=== PATIENT | male | born 1950 | race Caucasian/White ===

== ENCOUNTER 2021-08-12 21:55 | Observation (INO) ==
[2021-08-12] MEDS ORDERED: APRESOLINE INJ 20 MG VIAL IVP ONE (22:16)
[2021-08-12] MEDS ORDERED: TYLENOL 500 MG TAB EXTRA STRENGTH PO ONE ×2 (22:17→22:50)
--- NOTE | 2021-08-12 22:34 | DR.URIAD ---
HPI Time Seen Time Seen by Provider: 08/12/21 22:14 PCP Primary Care Physician: TAMEKA CASTAÑEDA Complaint Chief Complaint Doctors Comments: 70 y/o male presents with Covid, had a positive home test this am. Has been ill with cough, fever, chills and body aches since yesterday. His PCP called in doxycycline, medrol and benzonatate. Was told to come for Ab infusion. Cough is minimally productive. Denies chest pain to me. Has had nausea and vomiting x 2. No diarrhea. No previous covid vaccines. Is short of breath at times. Chief Complaint:: PT REPORTS A "RASPY" THROAT, COUGH, MILD FEVER, BODY ACHES, CHILLS. PT DENIES ANY CHEST DISCOMFORT. PT STATES THAT HE TOOK AN AT HOME COVID TEST THIS MORNING AND TESTED POSITIVE. Self Treatment fo Chief Complaint: PT HAS NOT SEEN HIS PCP D/T PCP CLOSED. PT PRESENTED TO ED. COVID-19 Coronavirus risk:travel/contact w/high risk person: Yes Has patient experienced Coronavirus symptoms: Yes Coronavirus symptoms experienced: Fever, Coughing and Shortness of Breath Reviewed Nurses Notes Reviewed: Yes Source History Provided: Patient Mode of Arrival Mode of Arrival: Ambulatory Timing Onset of Chief Complaint: 08/10/21 Quality Shortness of Breath: Mild PMH PMH Past Medical History: No Past Surgical History: Yes Surgical History: Ortho Surgery Past Surgical History Comment: EYE SURGERY X2, NECK SURGERY (METAL PLATES IN NECK) Family History History of Family Medical Conditions: Yes Family Medical History: Cancer Travel Risk Coronavirus risk:travel/contact w/high risk person: Yes Has patient experienced Coronavirus symptoms: Yes Coronavirus symptoms experienced: Fever, Coughing and Shortness of Breath Infectious screening Have you traveled outside the country in the last 6 months?: No Isolation: Airborn/Negative Pressure ROS Review of Systems Constitutional: Chills, Fever, Malaise and Weakness Eyes: No Symptoms Reported ENTM: Nose Congestion Respiratoy: Non-Productive Cough and Short of Breath Cardiovascular: No Symptoms Reported Gastrointestinal/Abdominal: Nausea and Vomiting; negative Abdominal Pain Genitourinary: No Symptoms Reported Neurological: Weakness Musculoskeletal: Muscle Pain Integumentary: No Symptoms Reported Hematologic/Lymphatic: No Symptoms Reported Endocrine: No Symptoms Reported Psychiatric: No Symptoms Reported All Other Systems: Reviewed and Negative PE Vital Signs Vitals: Temperature 100.5 F Pulse Rate 109 Respiratory Rate 22 Blood Pressure 175/107 O2 Sat by Pulse Oximetry 93 General Limitations: No Limitations General Appearance: Alert, In No Apparent Distress and Other (+ frequent dry cough) Eyes Eye exam: Normal Appearance, PERRL and EOMI ENT ENT Exam: Mucous Membranes Moist External Ear Exam: Normal External Inspection Nose Exam: Normal Nose Exam Throat Exam: Normal Inspection Neck Neck Exam: Normal Inspection and Full ROM; negative Tenderness Chest Chest Inspection: Normal Inspection Respiratory Respiratory Exam: negative Accessory Muscle Use and Respiratory Distress Respiratory Exam: Bilateral: Rhonchi Cardiovascular Cardiovascular Exam: Regular Rate, Normal Rhythm, Tachycardia and Normal Heart Sounds Abdominal Exam Abdominal Exam: Normal Inspection, Normal Bowel Sounds and Soft; negative Tenderness Extremeties Extremities Exam: Normal Inspection and Full ROM; negative Tenderness and Edema Back Back Exam: Normal Inspection Neurologic Neurological Exam: Alert, Oriented X3 and CN II-XII Intact; negative Motor Sensory Deficit Psychiatric Psychiatric Exam: Normal Affect Skin Skin Exam: Warm and Dry MDM Differential Diagnosis Differential Diagnosis: Pneumonia (Covid) COURSE Treatment Treatment: 70 y/o ill since yesterday, + covid today. Pulse ox 91%. W/u initiated. + marked elevated BP (has had HTN in past "when aggravated). Given IV hydralazine. Will give IV solu-medrol. CXR with pneumonia changes c/w Covid. Recommend admission for O2, further therapies. Discussed with covering hospitalist, Dr Mooney, and he accepts the admmission. [facility] Labs Reviewed Result Diagrams: 08/12/21 22:28 08/12/21 22:28 Laboratory: WBC 9.6 X10^3/uL (3.6-10.0) 08/12/21 22: RBC 5.45 X10^6/uL (4.7-6.0) 08/12/21 22:28 Hgb 17.1 g/dL (13.5-18.0) 08/12/21 22: Hct 49.1 % (42.0-54.0) 08/12/21 22: MCV 90.0 fL (80.0-100.0) 08/12/21 22: MCH 31.4 pg (27.0-34.0) 08/12/21 22: MCHC 34.9 g/dL (33.0-35.0) 08/12/21 22: RDW 13.6 % (11.6-16.5) 08/12/21: Plt Count 109 X10^3/uL (150.0-450.0) L 08/12/21 Plt Count Comment Adequate (ADEQUATE) 08/12/21 MPV 10.0 fL (7.4-11.0) 08/12/21: Neut % (Auto) 91.3 % (42.0-75.0) H 08/12/21: Lymph % (Auto) 4.7 % (21.0-51.0) L 08/12/21: [place] % (Auto) 2.9 % (0.0-13.0) 08/12/21: Eos % (Auto) 0.0 % (0.9-2.9) L 08/12/21 Baso % (Auto) 1.1 % (0.2-1.0) H 08/12/21 Neut # (Auto) 8.8 x10^3/uL (2.2-4.8) H 08/12/21: Lymph # (Auto) 0.4 X10^3/uL (1.3-2.9) L 08/12/21: [place] # (Auto) 0.3 x10^3/uL (0.3-0.8) 08/12/21: Eos # (Auto) 0.0 x10^3/uL (0.0-0.2) 08/12/21: Baso # (Auto) 0.1 X10^3/uL (0.0-0.1) 08/12/21: Absolute Nucleated RBC 0.0 /100WBC 08/12/21 Total Counted 100 08/12/21: Neutrophils % (Manual) 83 % (39-76) H 08/12/21 Band Neutrophils % 10 % (0-10) 08/12/21 Lymphocytes % (Manual) 4 % (13-43) L 08/12/21: Monocytes % (Manual) 3 % (4-9) L 08/12/21: Plt Morphology Comment Normal (NORMAL) 01/04/22 22:28 RBC Morphology Normal (NORMAL) 08/12/21 22:28 Sodium 134 mmol/L (136-145) L 08/12/21 22: Corrected Sodium 137 mmol/L (136-145) 08/12/21 22: Potassium 4.1 mmol/L (3.5-5.1) 08/12/21 22: Chloride 100 mmol/L (98-107) 08/12/21 22: Carbon Dioxide 23.1 mmol/L (21-32) 08/12/21 22: BUN 15 mg/dL (7-18) 08/12/21: Creatinine 1.11 mg/dL (0.70-1.30) 08/12/21:28 Est GFR (MDRD) Af Amer > 60 (>60) 08/12/21 22: Est GFR (MDRD) Non-Af > 60 (>60) 08/12/21 22: Glucose 216 mg/dL (65-99) H 08/12/21 22: Calcium 9.0 mg/dL (8.5-10.1) 08/12/21: Corrected Calcium TNP 08/12/21: Total Bilirubin 0.50 mg/dL (0.2-1.0) 08/12/21 22: AST 106 Units/L (15-37) H 08/12/21 22: ALT 168 Units/L (12-78) H 08/12/21 22: Alkaline Phosphatase 85 Units/L (46-116) 08/12/21: Creatine Kinase 239 Units/L (39-308) 08/12/21: CK-MB (CK-2) 1.5 ng/mL (0-4.0) 08/12/21 22: CK/CKMB % Calc 0.6 % (<4) 08/12/21: Troponin I < 0.02 ng/mL (0-1.5) 08/12/21: Total Protein 7.7 g/dL (6.4-8.2) 08/12/21 22: Albumin 3.8 g/dL (3.4-5.0) 08/12/21 22: Globulin 3.9 g/dL (2.5-4.5) 08/12/21 22:28 Albumin/Globulin Ratio 1.0 Ratio (1.1-2.1) L 08/12/21 22:28 Specimen Type Clean catch urine 08/13/21 00:01 Urine Color Yellow (YELLOW) 08/13/21 00:01 Urine Appearance Clear (CLEAR) 08/13/21 00:01 Urine pH 5.0 (5.0 - 8.0) 08/13/21 00:01 Ur Specific [place] 1.025 (1.000-1.030) 08/13/21 00:01 Urine Protein 2+ (NEGATIVE) 08/13/21 00:01 Urine Glucose (UA) 4+ (NEGATIVE) 08/13/21 00:01 Urine Ketones 3+ (NEGATIVE) 08/13/21 00:01 Urine Occult Blood 1+ (NEGATIVE) 08/13/21 00:01 Urine Nitrite Negative (NEGATIVE) 08/13/21 00:01 Urine Bilirubin Negative (NEGATIVE) 08/13/21 00:01 Urine Urobilinogen Normal (NORMAL) 08/13/21 00:01 Ur Leukocyte Esterase Negative (NEGATIVE) 08/13/21 00:01 Urine RBC None seen /HPF (0-3) 08/13/21 00:01 Urine WBC None seen /HPF (0-5) 08/13/21 00:01 Ur Squamous Epith Cells Rare /HPF (NEGATIVE) 08/13/21 00:01 Urine Bacteria Negative /HPF (NEGATIVE) 08/13/21 00:01 Ur Culture Indicated? No/not indicated 08/13/21 00:01 SARS-CoV-2 (PCR) Positive (NEGATIVE) A 08/12/21 22:23 Influenza Type A (PCR) Negative (NEGATIVE) 08/12/21 22:23 Influenza Type B (PCR) Negative (NEGATIVE) 08/12/21 22:23 RSV (PCR) Negative (NEGATIVE) 08/12/21 22:23 EKG Rate: 112 [place]: Normal Rhythm: ST Block: None ST: Nonsp Opioid Opioid Risk Tool Age (Saroj box if 16-45): No Total: 0 Total Score Risk Category: Low Risk Copyright: Santana CERVANTES predicting aberrant behaviors Diagnosis Discharge Problem: Pneumonia due to COVID-19 virus, Hypoxia Instructions Forms: Precautions for COVID19 [facility] Social Distancing
[2021-08-12 22:35] LABS: BASOPHILS # (AUTO) 0.1 X10^3/uL (0.0-0.1); BASOPHILS % (AUTO) 1.1 % (0.2-1.0); HEMATOCRIT 49.1 % (42.0-54.0); HEMOGLOBIN 17.1 g/dL (13.5-18.0); LYMPHOCYTES # (AUTO) 0.4 X10^3/uL (1.3-2.9); LYMPHOCYTES % (AUTO) 4.7 % (21.0-51.0); MEAN CORPUSCULAR HEMOGLOBIN 31.4 pg (27.0-34.0); MEAN CORPUSCULAR HGB CONC 34.9 g/dL (33.0-35.0); MONOCYTES # (AUTO) 0.3 x10^3/uL (0.3-0.8); MONOCYTES % (AUTO) 2.9 % (0.0-13.0); NEUTROPHILS # (AUTO) 8.8 x10^3/uL (2.2-4.8); NEUTROPHILS % (AUTO) 91.3 % (42.0-75.0); PLATELET COUNT 109 X10^3/uL (150.0-450.0); RED BLOOD COUNT 5.45 X10^6/uL (4.7-6.0); RED CELL DISTRIBUTION WIDTH 13.6 % (11.6-16.5); WHITE BLOOD COUNT 9.6 X10^3/uL (3.6-10.0)
[2021-08-12 22:50] LABS: BAND NEUTROPHILS % 10 % (0-10); PLATELET MORPHOLOGY COMMENT NORMAL (NORMAL)
[2021-08-12] MEDS ORDERED: APRESOLINE INJ 20 MG VIAL ONE (22:50)
[2021-08-12] MEDS ORDERED: SOLU-Medrol 125 MG VIAL IVP ONE (22:51)
--- NOTE | 2021-08-12 22:54 | RAD ---
HISTORYPT REPORTS A "RASPY" THROAT, COUGH, MILD FEVER, BODY ACHES, CHILLS. PT DENIES ANY CHEST DISCOMFORT. PT STATES THAT HE TOOK AN AT HOME COVID TEST THIS MORNING AND TESTED POSITIVE.STUDYCHEST, 1 VIEWCOMPARISONNone availableTECHNIQUEChest radiographic imaging, AP portable projection, 1 imageFINDINGSNo cardiomegaly.Hazy airspace disease at the right lung base and in the mid to lower left lung field.No pleural effusion.No pneumothorax.No acute osseous abnormality.IMPRESSIONHazy airspace disease at the right lung base and in the mid to lower left lung field. Finding could represent the sequela of a COVID-19 respiratory infection.Electronically signed by: Nguyễn Elliott (Aug 12, 2021 22:53:12)
[2021-08-12] MEDS ORDERED: SOLU-Medrol 125 MG VIAL ONE (23:09)
[2021-08-12 23:10] LABS: ALANINE AMINOTRANSFERASE 168 Units/L (12-78); ALBUMIN 3.8 g/dL (3.4-5.0); ALKALINE PHOSPHATASE 85 Units/L (46-116); ASPARTATE AMINO TRANSFERASE 106 Units/L (15-37); BLOOD UREA NITROGEN 15 mg/dL (7-18); CARBON DIOXIDE 23.1 mmol/L (21-32); CHLORIDE 100 mmol/L (98-107); CKMB % 0.6 % (<4); COR NA(FOR HYPERGLY) 137 mmol/L (136-145); CREATINE KINASE 239 Units/L (39-308); CREATINE KINASE MB 1.5 ng/mL (0-4.0); CREATININE 1.11 mg/dL (0.70-1.30); SODIUM 134 mmol/L (136-145); TOTAL PROTEIN 7.7 g/dL (6.4-8.2); eGFR NON BLACK RACES > 60 (>60)
[2021-08-13] MEDS ORDERED: NORCO 7.5/325 MG TAB PO ONE (00:31)
[2021-08-13 00:32] LABS: APPEARANCE,URINE CLEAR (CLEAR); BILIRUBIN,URINE NEGATIVE (NEGATIVE); BLOOD/HEMOGLOBIN,URINE 1+ (NEGATIVE); COLOR,URINE YELLOW (YELLOW); GLUCOSE, URINE 4+ (NEGATIVE); KETONES,URINE 3+ (NEGATIVE); LEUKOCYTE ESTERASE ,URINE NEGATIVE (NEGATIVE); NITRITES,URINE NEGATIVE (NEGATIVE); PROTEIN,URINE 2+ (NEGATIVE); UROBILINOGEN,URINE NORMAL (NORMAL)
[2021-08-13 00:33] LABS: BACTERIA,URINE NEGATIVE /HPF (NEGATIVE); RBC,URINE NONE SEEN /HPF (0-3); SQUAMOUS EPITHELIAL CELL,UR RARE /HPF (NEGATIVE)
[2021-08-13] MEDS ORDERED: REMDESIVIR 200 MG in NS 250 ML IV 250 ML IV ONE (00:37)
[2021-08-13] MEDS ORDERED: ZOFRAN INJ 4 MG VIAL IVP ONE (00:39)
[2021-08-13] MEDS ORDERED: REMDESIVIR IV ONE (01:48)
[2021-08-13] MEDS ORDERED: NORCO 7.5/325 MG TAB ONE (01:48)
[2021-08-13] MEDS ORDERED: ZOFRAN INJ 4 MG VIAL ONE (01:49)
[2021-08-13] MEDS ORDERED: NS 250 ML IV 250 ML IV ONE (01:49)
[2021-08-13] MEDS ORDERED: PERIACTIN TAB 4 MG PO PRN (03:36)
[2021-08-13] MEDS ORDERED: ZOFRAN INJ 4 MG VIAL IVP PRN (03:36)
[2021-08-13] MEDS ORDERED: PHARMACY CONSULT - LOVENOX XX SCH (03:36)
[2021-08-13] MEDS ORDERED: PHARMACY CONSULT - IVERMECTIN XX SCH (03:36)
[2021-08-13] MEDS ORDERED: SOLU-Medrol 125 MG VIAL IVP SCH (03:36)
[2021-08-13] MEDS ORDERED: NS 1,000 ML IV 1,000 ML ONE (03:50)
[2021-08-13] MEDS ORDERED: ASCORBIC ACID INJ MULTI-DOSE VIAL IV ONE ×3 (03:51→13:16)
[2021-08-13] MEDS ORDERED: NS 100 ML IV 100 ML ONE ×3 (03:52→13:15)
[2021-08-13] MEDS: NS 1,000 ML IV 1,000 ML IV SCH ×3 (04:16→21:55)
[2021-08-13] MEDS: ASCORBIC ACID INJ MULTI-DOSE VIAL 1,500 MG in NS 100 ML IV 100 ML IV SCH ×4 (04:16→21:25)
[2021-08-13] MEDS ORDERED: APRESOLINE INJ 20 MG VIAL IVP ONE (05:39)
[2021-08-13] MEDS ORDERED: APRESOLINE INJ 20 MG VIAL ONE (05:42)
[2021-08-13] MEDS ORDERED: TESSALON PERLES PO ONE ×2 (05:42→13:15)
[2021-08-13] MEDS: TESSALON PERLES PO SCH ×3 (05:53→21:50)
[2021-08-13] MEDS ORDERED: NovoLIN R (or HumuLIN R) SUBCUT PRN (05:54)
[2021-08-13] MEDS ORDERED: NovoLIN R (or HumuLIN R) ONE ×2 (06:10→20:15)
[2021-08-13 06:34] LABS: BASOPHILS % (AUTO) 0.3 % (0.2-1.0); HEMATOCRIT 48.5 % (42.0-54.0); HEMOGLOBIN 16.8 g/dL (13.5-18.0); LYMPHOCYTES # (AUTO) 0.5 X10^3/uL (1.3-2.9); LYMPHOCYTES % (AUTO) 5.1 % (21.0-51.0); MEAN CORPUSCULAR HEMOGLOBIN 31.5 pg (27.0-34.0); MEAN CORPUSCULAR HGB CONC 34.8 g/dL (33.0-35.0); MEAN CORPUSCULAR VOLUME 90.6 fL (80.0-100.0); MEAN PLATELET VOLUME 10.9 fL (7.4-11.0); MONOCYTES # (AUTO) 0.4 x10^3/uL (0.3-0.8); MONOCYTES % (AUTO) 3.8 % (0.0-13.0); NEUTROPHILS % (AUTO) 90.8 % (42.0-75.0); PLATELET COUNT 108 X10^3/uL (150.0-450.0); RED BLOOD COUNT 5.35 X10^6/uL (4.7-6.0); RED CELL DISTRIBUTION WIDTH 13.9 % (11.6-16.5); WHITE BLOOD COUNT 9.9 X10^3/uL (3.6-10.0)
[2021-08-13 07:04] LABS: ALANINE AMINOTRANSFERASE 143 Units/L (12-78); ALBUMIN 3.4 g/dL (3.4-5.0); ALKALINE PHOSPHATASE 77 Units/L (46-116); ASPARTATE AMINO TRANSFERASE 76 Units/L (15-37); BLOOD UREA NITROGEN 18 mg/dL (7-18); CALCIUM 8.5 mg/dL (8.5-10.1); CARBON DIOXIDE 23.5 mmol/L (21-32); CHLORIDE 101 mmol/L (98-107); COR NA(FOR HYPERGLY) 140 mmol/L (136-145); CREATININE 1.01 mg/dL (0.70-1.30); SODIUM 136 mmol/L (136-145); TOTAL PROTEIN 7.3 g/dL (6.4-8.2); eGFR NON BLACK RACES > 60 (>60)
--- NOTE | 2021-08-13 07:18 | RAD ---
HISTORYCOVID PNEUMONIASTUDYCHEST, 1 [id number]/04/2022.TECHNIQUEAP view of the chestFINDINGSThe cardiac silhouette is stably enlarged. Mediastinal contours appear stable. Low lung volumes with mild patchy bibasilar opacities. No definite pleural effusion or pneumothorax.IMPRESSIONStable patchy bibasilar opacities may represent pneumonia.Electronically signed by: Josef Foster (Aug 13, 2021 07:15:34)
[2021-08-13 07:31] LABS: BAND NEUTROPHILS % 11 % (0-10); PLATELET MORPHOLOGY COMMENT NORMAL (NORMAL)
[2021-08-13] MEDS ORDERED: BROVANA IN SCH (09:00)
[2021-08-13] MEDS ORDERED: VITAMIN A PO SCH (09:00)
[2021-08-13] MEDS ORDERED: ROCEPHIN VIAL 2 GRAMS 2 G in NS 100 ML IV + SPIKE MINIBAG* 100 ML IV SCH (09:00)
[2021-08-13] MEDS ORDERED: ROCEPHIN VIAL 2 GRAMS IM SCH (09:00)
[2021-08-13] MEDS ORDERED: LOVENOX INJ 100 MG SYR SC SCH (09:00)
[2021-08-13] MEDS ORDERED: IVERMECTIN PO SCH (09:00)
[2021-08-13] MEDS: BROVANA IN SCH ×2 (09:00→20:18)
[2021-08-13] MEDS ORDERED: VITAMIN D (1.25MG) PO SCH (09:00)
[2021-08-13] MEDS ORDERED: PULMICORT NEB TX 0.5 MG NEB SCH (09:00)
[2021-08-13] MEDS ORDERED: LIPITOR TAB 80 MG ONE (09:18)
[2021-08-13] MEDS ORDERED: CYTOTEC ONE ×2 (09:18→13:15)
[2021-08-13] MEDS ORDERED: THIAMINE HCL INJ ONE (09:18)
[2021-08-13] MEDS ORDERED: LOVENOX INJ 100 MG SYR SC ONE (09:18)
[2021-08-13] MEDS ORDERED: IVERMECTIN ONE (09:18)
[2021-08-13] MEDS ORDERED: ZINC SULFATE ONE (09:19)
[2021-08-13] MEDS ORDERED: PEPCID TAB 40 MG ONE (09:19)
[2021-08-13] MEDS ORDERED: VITAMIN D3 125 mcg (5,000 UNITS) ONE (09:19)
[2021-08-13] MEDS ORDERED: SOLU-Medrol 40 MG VIAL ONE (09:19)
[2021-08-13] MEDS ORDERED: PROTONIX INJ 40 MG VIAL ONE (09:19)
[2021-08-13] MEDS: ZINC SULFATE PO SCH ×2 (09:38→20:18)
[2021-08-13] MEDS: LIPITOR TAB 80 MG PO SCH (09:38)
[2021-08-13] MEDS: CYTOTEC PO SCH ×4 (09:39→20:18)
[2021-08-13] MEDS: PROTONIX INJ 40 MG VIAL IVP SCH ×2 (09:39→20:17)
[2021-08-13] MEDS: PEPCID TAB 40 MG PO SCH ×2 (09:39→20:17)
[2021-08-13] MEDS: THIAMINE HCL INJ IVP SCH ×2 (09:39→20:20)
[2021-08-13] MEDS: SOLU-Medrol 40 MG VIAL IVP SCH ×2 (09:40→17:49)
[2021-08-13] MEDS ORDERED: TOPROL XL PO ONE (17:41)
[2021-08-13] MEDS ORDERED: COZAAR PO SCH (18:00)
[2021-08-13] MEDS ORDERED: TOPROL XL PO SCH (18:00)
[2021-08-13] MEDS ORDERED: MELATONIN ONE (19:52)
[2021-08-13] MEDS ORDERED: SNACK - Diabetic Appropriate PO SCH (20:00)
[2021-08-13] MEDS: PULMICORT NEB TX 0.5 MG NEB SCH (20:18)
[2021-08-13] MEDS: NovoLIN R (or HumuLIN R) SUBCUT PRN (20:18)
[2021-08-13] MEDS: MELATONIN PO SCH (20:18)
[2021-08-14] MEDS: ASCORBIC ACID INJ MULTI-DOSE VIAL 1,500 MG in NS 100 ML IV 100 ML IV SCH ×4 (02:00→20:58)
[2021-08-14] MEDS: NS 1,000 ML IV 1,000 ML IV SCH ×2 (05:43→20:02)
[2021-08-14] MEDS: TESSALON PERLES PO SCH ×3 (05:44→21:01)
[2021-08-14] MEDS: NovoLIN R (or HumuLIN R) SUBCUT PRN ×3 (05:45→21:02)
[2021-08-14 05:46] LABS: BASOPHILS % (AUTO) 0.1 % (0.2-1.0); HEMATOCRIT 44.3 % (42.0-54.0); HEMOGLOBIN 15.1 g/dL (13.5-18.0); LYMPHOCYTES # (AUTO) 0.8 X10^3/uL (1.3-2.9); MEAN CORPUSCULAR HEMOGLOBIN 31.2 pg (27.0-34.0); MEAN CORPUSCULAR HGB CONC 34.1 g/dL (33.0-35.0); MEAN CORPUSCULAR VOLUME 91.4 fL (80.0-100.0); MEAN PLATELET VOLUME 11.2 fL (7.4-11.0); MONOCYTES # (AUTO) 0.9 x10^3/uL (0.3-0.8); MONOCYTES % (AUTO) 6.9 % (0.0-13.0); NEUTROPHILS # (AUTO) 11.5 x10^3/uL (2.2-4.8); PLATELET COUNT 120 X10^3/uL (150.0-450.0); RED BLOOD COUNT 4.85 X10^6/uL (4.7-6.0); RED CELL DISTRIBUTION WIDTH 13.9 % (11.6-16.5); WHITE BLOOD COUNT 13.2 X10^3/uL (3.6-10.0)
[2021-08-14 05:49] LABS: ALANINE AMINOTRANSFERASE 97 Units/L (12-78); ALKALINE PHOSPHATASE 65 Units/L (46-116); ASPARTATE AMINO TRANSFERASE 37 Units/L (15-37); BLOOD UREA NITROGEN 26 mg/dL (7-18); CALCIUM 8.3 mg/dL (8.5-10.1); CHLORIDE 106 mmol/L (98-107); COR CA(FOR HYPOALB) 9.1 mg/dL (8.5-10.1); COR NA(FOR HYPERGLY) 140 mmol/L (136-145); CREATININE 1.09 mg/dL (0.70-1.30); SODIUM 137 mmol/L (136-145); TOTAL PROTEIN 6.5 g/dL (6.4-8.2); eGFR NON BLACK RACES > 60 (>60)
[2021-08-14] MEDS: PULMICORT NEB TX 0.5 MG NEB SCH ×2 (08:43→20:51)
[2021-08-14] MEDS: BROVANA IN SCH ×2 (08:43→20:52)
[2021-08-14 09:13] VITALS: BMI 32.3
[2021-08-14] MEDS: LIPITOR TAB 80 MG PO SCH (09:49)
[2021-08-14] MEDS: CYTOTEC PO SCH ×4 (09:49→20:58)
[2021-08-14] MEDS: ACTOS PO SCH (09:49)
[2021-08-14] MEDS: THIAMINE HCL INJ IVP SCH ×2 (09:50→21:00)
[2021-08-14] MEDS: REMDESIVIR 100 MG in NS 100 ML IV + SPIKE MINIBAG* 120 ML IV SCH (09:50)
[2021-08-14] MEDS: ZINC SULFATE PO SCH ×3 (09:50→21:45)
[2021-08-14] MEDS: PEPCID TAB 40 MG PO SCH ×2 (09:50→20:59)
[2021-08-14] MEDS: PROTONIX INJ 40 MG VIAL IVP SCH ×2 (09:50→20:59)
[2021-08-14] MEDS: GLUCOPHAGE XR 24-HR PO SCH ×2 (10:30→20:57)
[2021-08-14] MEDS: IVERMECTIN PO SCH (11:18)
[2021-08-14] MEDS: LOVENOX INJ 100 MG SYR SC SCH ×2 (12:25→20:59)
[2021-08-14] MEDS: SOLU-Medrol 40 MG VIAL IVP SCH ×2 (14:02→21:00)
[2021-08-14] MEDS: SNACK - Diabetic Appropriate PO SCH (20:57)
[2021-08-14] MEDS: MELATONIN PO SCH (20:59)
[2021-08-15] MEDS: ASCORBIC ACID INJ MULTI-DOSE VIAL 1,500 MG in NS 100 ML IV 100 ML IV SCH ×3 (03:37→14:12)
[2021-08-15] MEDS: NS 1,000 ML IV 1,000 ML IV SCH ×3 (03:38→20:59)
[2021-08-15 05:26] LABS: BASOPHILS % (AUTO) 0.1 % (0.2-1.0); HEMATOCRIT 43.1 % (42.0-54.0); HEMOGLOBIN 14.6 g/dL (13.5-18.0); LYMPHOCYTES # (AUTO) 0.7 X10^3/uL (1.3-2.9); MEAN CORPUSCULAR HEMOGLOBIN 31.3 pg (27.0-34.0); MEAN CORPUSCULAR HGB CONC 33.9 g/dL (33.0-35.0); MEAN CORPUSCULAR VOLUME 92.1 fL (80.0-100.0); MEAN PLATELET VOLUME 11.3 fL (7.4-11.0); MONOCYTES # (AUTO) 0.4 x10^3/uL (0.3-0.8); MONOCYTES % (AUTO) 3.2 % (0.0-13.0); NEUTROPHILS % (AUTO) 90.7 % (42.0-75.0); PLATELET COUNT 102 X10^3/uL (150.0-450.0); RED BLOOD COUNT 4.68 X10^6/uL (4.7-6.0); RED CELL DISTRIBUTION WIDTH 14.2 % (11.6-16.5)
[2021-08-15 05:36] LABS: ALANINE AMINOTRANSFERASE 75 Units/L (12-78); ALBUMIN 2.9 g/dL (3.4-5.0); ALKALINE PHOSPHATASE 59 Units/L (46-116); ASPARTATE AMINO TRANSFERASE 30 Units/L (15-37); BLOOD UREA NITROGEN 28 mg/dL (7-18); CALCIUM 7.7 mg/dL (8.5-10.1); CARBON DIOXIDE 26.6 mmol/L (21-32); CHLORIDE 106 mmol/L (98-107); COR CA(FOR HYPOALB) 8.6 mg/dL (8.5-10.1); COR NA(FOR HYPERGLY) 142 mmol/L (136-145); CREATININE 1.05 mg/dL (0.70-1.30); SODIUM 139 mmol/L (136-145); TOTAL PROTEIN 6.2 g/dL (6.4-8.2); eGFR NON BLACK RACES > 60 (>60)
[2021-08-15] MEDS: TESSALON PERLES PO SCH ×3 (05:59→21:04)
[2021-08-15] MEDS: SOLU-Medrol 40 MG VIAL IVP SCH ×4 (05:59→21:02)
[2021-08-15 06:00] LABS: BAND NEUTROPHILS % 4 % (0-10)
[2021-08-15 06:01] LABS: PLATELET MORPHOLOGY COMMENT NORMAL (NORMAL)
[2021-08-15] MEDS: NovoLIN R (or HumuLIN R) SUBCUT PRN ×4 (06:25→21:05)
[2021-08-15] MEDS: BROVANA IN SCH ×2 (08:45→20:25)
[2021-08-15] MEDS: PULMICORT NEB TX 0.5 MG NEB SCH ×2 (08:45→20:25)
[2021-08-15] MEDS: ACTOS PO SCH (09:25)
[2021-08-15] MEDS: CYTOTEC PO SCH ×4 (09:27→21:01)
[2021-08-15] MEDS: IVERMECTIN PO SCH (09:28)
[2021-08-15] MEDS: LOVENOX INJ 100 MG SYR SC SCH ×2 (09:28→21:03)
[2021-08-15] MEDS: GLUCOPHAGE XR 24-HR PO SCH ×2 (09:28→20:59)
[2021-08-15] MEDS: LIPITOR TAB 80 MG PO SCH (09:28)
[2021-08-15] MEDS: REMDESIVIR 100 MG in NS 100 ML IV + SPIKE MINIBAG* 120 ML IV SCH (09:29)
[2021-08-15] MEDS: PEPCID TAB 40 MG PO SCH ×2 (09:29→21:01)
[2021-08-15] MEDS: PROTONIX INJ 40 MG VIAL IVP SCH ×2 (09:29→21:02)
[2021-08-15] MEDS: VITAMIN D3 125 mcg (5,000 UNITS) PO SCH (09:30)
[2021-08-15] MEDS: VITAMIN A PO SCH (09:30)
[2021-08-15] MEDS: THIAMINE HCL INJ IVP SCH ×2 (09:30→21:03)
[2021-08-15] MEDS: ZINC SULFATE PO SCH ×2 (09:30→21:03)
[2021-08-15] MEDS: SNACK - Diabetic Appropriate PO SCH (20:59)
[2021-08-15] MEDS: MELATONIN PO SCH (21:00)
[2021-08-15] MEDS: ASCORBIC ACID INJ MULTI-DOSE VIAL 1,500 MG in NS 50 ML IV 50 ML IV SCH (21:00)
[2021-08-16] MEDS: SOLU-Medrol 40 MG VIAL IVP SCH ×2 (03:29→11:22)
[2021-08-16] MEDS: ASCORBIC ACID INJ MULTI-DOSE VIAL 1,500 MG in NS 50 ML IV 50 ML IV SCH ×4 (03:29→21:35)
[2021-08-16 05:29] LABS: BASOPHILS % (AUTO) 0.2 % (0.2-1.0); HEMATOCRIT 44.2 % (42.0-54.0); HEMOGLOBIN 15.2 g/dL (13.5-18.0); LYMPHOCYTES # (AUTO) 0.7 X10^3/uL (1.3-2.9); LYMPHOCYTES % (AUTO) 6.7 % (21.0-51.0); MEAN CORPUSCULAR HEMOGLOBIN 31.4 pg (27.0-34.0); MEAN CORPUSCULAR HGB CONC 34.3 g/dL (33.0-35.0); MEAN CORPUSCULAR VOLUME 91.5 fL (80.0-100.0); MONOCYTES # (AUTO) 0.4 x10^3/uL (0.3-0.8); MONOCYTES % (AUTO) 4.4 % (0.0-13.0); NEUTROPHILS # (AUTO) 8.9 x10^3/uL (2.2-4.8); NEUTROPHILS % (AUTO) 88.7 % (42.0-75.0); PLATELET COUNT 95 X10^3/uL (150.0-450.0); RED BLOOD COUNT 4.83 X10^6/uL (4.7-6.0); RED CELL DISTRIBUTION WIDTH 13.8 % (11.6-16.5)
[2021-08-16 05:52] LABS: ALANINE AMINOTRANSFERASE 62 Units/L (12-78); ALBUMIN 2.9 g/dL (3.4-5.0); ALKALINE PHOSPHATASE 59 Units/L (46-116); ASPARTATE AMINO TRANSFERASE 25 Units/L (15-37); BLOOD UREA NITROGEN 30 mg/dL (7-18); CALCIUM 8.1 mg/dL (8.5-10.1); CARBON DIOXIDE 27.8 mmol/L (21-32); CHLORIDE 107 mmol/L (98-107); COR NA(FOR HYPERGLY) 145 mmol/L (136-145); CREATININE 0.96 mg/dL (0.70-1.30); SODIUM 143 mmol/L (136-145); TOTAL PROTEIN 6.2 g/dL (6.4-8.2); eGFR NON BLACK RACES > 60 (>60)
[2021-08-16] MEDS: NovoLIN R (or HumuLIN R) SUBCUT PRN ×2 (06:08→12:15)
[2021-08-16] MEDS: NS 1,000 ML IV 1,000 ML IV SCH ×2 (06:08→11:20)
[2021-08-16] MEDS: TESSALON PERLES PO SCH ×3 (06:08→21:39)
[2021-08-16] MEDS: PULMICORT NEB TX 0.5 MG NEB SCH ×2 (09:10→20:53)
[2021-08-16] MEDS: BROVANA IN SCH ×2 (09:10→20:53)
[2021-08-16] MEDS: ACTOS PO SCH (09:11)
[2021-08-16] MEDS: GLUCOPHAGE XR 24-HR PO SCH ×2 (09:12→21:35)
[2021-08-16] MEDS: CYTOTEC PO SCH ×4 (09:12→21:35)
[2021-08-16] MEDS: IVERMECTIN PO SCH (09:13)
[2021-08-16] MEDS: PEPCID TAB 40 MG PO SCH ×2 (09:16→21:37)
[2021-08-16] MEDS: LIPITOR TAB 80 MG PO SCH (09:16)
[2021-08-16] MEDS: PROTONIX INJ 40 MG VIAL IVP SCH ×2 (09:19→21:38)
[2021-08-16] MEDS: THIAMINE HCL INJ IVP SCH ×2 (09:19→21:38)
[2021-08-16] MEDS: VITAMIN A PO SCH (09:19)
[2021-08-16] MEDS: ZINC SULFATE PO SCH ×2 (09:20→21:38)
[2021-08-16] MEDS: VITAMIN D3 125 mcg (5,000 UNITS) PO SCH (09:20)
[2021-08-16] MEDS: ELIQUIS PO SCH ×2 (10:20→21:35)
[2021-08-16] MEDS: DECADRON TAB PO SCH (10:21)
[2021-08-16] MEDS: REMDESIVIR 100 MG in NS 100 ML IV + SPIKE MINIBAG* 120 ML IV SCH (10:22)
[2021-08-16] MEDS: LOVENOX INJ 100 MG SYR SC SCH (11:23)
[2021-08-16] MEDS: SNACK - Diabetic Appropriate PO SCH (20:00)
[2021-08-16] MEDS ORDERED: COLACE CAP 100 MG PO PRN (20:39)
[2021-08-16] MEDS: MELATONIN PO SCH (21:35)
[2021-08-17] MEDS: NS 1,000 ML IV 1,000 ML IV SCH (03:28)
[2021-08-17] MEDS: ASCORBIC ACID INJ MULTI-DOSE VIAL 1,500 MG in NS 50 ML IV 50 ML IV SCH ×2 (04:00→09:28)
[2021-08-17 05:16] LABS: BASOPHILS % (AUTO) 0.1 % (0.2-1.0); HEMATOCRIT 42.3 % (42.0-54.0); HEMOGLOBIN 14.3 g/dL (13.5-18.0); LYMPHOCYTES # (AUTO) 0.5 X10^3/uL (1.3-2.9); LYMPHOCYTES % (AUTO) 6.1 % (21.0-51.0); MEAN CORPUSCULAR HGB CONC 33.9 g/dL (33.0-35.0); MEAN CORPUSCULAR VOLUME 91.5 fL (80.0-100.0); MEAN PLATELET VOLUME 11.1 fL (7.4-11.0); MONOCYTES # (AUTO) 0.5 x10^3/uL (0.3-0.8); MONOCYTES % (AUTO) 6.6 % (0.0-13.0); NEUTROPHILS # (AUTO) 6.7 x10^3/uL (2.2-4.8); NEUTROPHILS % (AUTO) 87.2 % (42.0-75.0); PLATELET COUNT 80 X10^3/uL (150.0-450.0); RED BLOOD COUNT 4.63 X10^6/uL (4.7-6.0); RED CELL DISTRIBUTION WIDTH 13.8 % (11.6-16.5); WHITE BLOOD COUNT 7.7 X10^3/uL (3.6-10.0)
[2021-08-17 06:28] LABS: ALANINE AMINOTRANSFERASE 49 Units/L (12-78); ALBUMIN 2.6 g/dL (3.4-5.0); ALKALINE PHOSPHATASE 51 Units/L (46-116); ASPARTATE AMINO TRANSFERASE 20 Units/L (15-37); BLOOD UREA NITROGEN 31 mg/dL (7-18); CALCIUM 7.8 mg/dL (8.5-10.1); CARBON DIOXIDE 26.5 mmol/L (21-32); CHLORIDE 108 mmol/L (98-107); COR CA(FOR HYPOALB) 8.9 mg/dL (8.5-10.1); COR NA(FOR HYPERGLY) 145 mmol/L (136-145); CREATININE 1.02 mg/dL (0.70-1.30); SODIUM 142 mmol/L (136-145); TOTAL PROTEIN 5.5 g/dL (6.4-8.2); eGFR NON BLACK RACES > 60 (>60)
[2021-08-17] MEDS: TESSALON PERLES PO SCH (06:33)
[2021-08-17] MEDS: NovoLIN R (or HumuLIN R) SUBCUT PRN (06:45)
[2021-08-17] MEDS: DECADRON TAB PO SCH (09:28)
[2021-08-17] MEDS: GLUCOPHAGE XR 24-HR PO SCH (09:28)
[2021-08-17] MEDS: CYTOTEC PO SCH (09:28)
[2021-08-17] MEDS: ELIQUIS PO SCH (09:28)
[2021-08-17] MEDS: ACTOS PO SCH (09:28)
[2021-08-17] MEDS: IVERMECTIN PO SCH (09:29)
[2021-08-17] MEDS: PEPCID TAB 40 MG PO SCH (09:29)
[2021-08-17] MEDS: VITAMIN A PO SCH (09:29)
[2021-08-17] MEDS: THIAMINE HCL INJ IVP SCH (09:29)
[2021-08-17] MEDS: PROTONIX INJ 40 MG VIAL IVP SCH (09:29)
[2021-08-17] MEDS: LIPITOR TAB 80 MG PO SCH (09:29)
[2021-08-17] MEDS: VITAMIN D3 125 mcg (5,000 UNITS) PO SCH (09:29)
[2021-08-17] MEDS: ZINC SULFATE PO SCH (09:30)
[2021-08-17] MEDS: BROVANA IN SCH (09:34)
[2021-08-17] MEDS: PULMICORT NEB TX 0.5 MG NEB SCH (09:34)
[2021-08-17 12:26] VITALS: BP 164/82
[2021-08-17] MEDS ORDERED: GLUCOPHAGE PO SCH (17:00)
== END 2021-08-17 13:42 | disposition home or self-care (01) ==
LOC: U 21:57 → ER 21:57 → U 08-13 02:23 → ICU 08-13 13:50
PROVIDERS: ADMIT Obstetrics & Gynecology Obstetrics; ATTEND Obstetrics & Gynecology Obstetrics
DX: R94.5 Abnormal results of liver function studies; E11.65 Type 2 diabetes mellitus with hyperglycemia; I10 Essential (primary) hypertension; J12.82 Pneumonia due to coronavirus disease 2019; R79.82 Elevated C-reactive protein (CRP); U07.1 COVID-19; R06.02 Shortness of breath

== ENCOUNTER 2021-09-09 16:29 | Inpatient (IN) ==
[2021-09-09] MEDS ORDERED: VANCOMYCIN IV *PREMIX 1 G/200 ML BAG 1 G/200 ML PIGGYBACK IV ONE (17:39)
[2021-09-09] MEDS: LR 1,000 ML IV 1,000 ML IV SCH (17:54)
[2021-09-09] MEDS ORDERED: PHARMACY CONSULT - VANCOMYCIN XX SCH (18:00)
[2021-09-09 18:23] LABS: BASOPHILS % (AUTO) 0.8 % (0.2-1.0); EOSINOPHILS # (AUTO) 0.4 x10^3/uL (0.0-0.2); EOSINOPHILS % (AUTO) 6.9 % (0.9-2.9); HEMATOCRIT 37.7 % (42.0-54.0); LYMPHOCYTES # (AUTO) 0.5 X10^3/uL (1.3-2.9); LYMPHOCYTES % (AUTO) 8.8 % (21.0-51.0); MEAN CORPUSCULAR HEMOGLOBIN 31.3 pg (27.0-34.0); MEAN CORPUSCULAR HGB CONC 34.5 g/dL (33.0-35.0); MEAN CORPUSCULAR VOLUME 90.7 fL (80.0-100.0); MEAN PLATELET VOLUME 8.8 fL (7.4-11.0); MONOCYTES # (AUTO) 0.5 x10^3/uL (0.3-0.8); MONOCYTES % (AUTO) 8.1 % (0.0-13.0); NEUTROPHILS # (AUTO) 4.4 x10^3/uL (2.2-4.8); NEUTROPHILS % (AUTO) 75.4 % (42.0-75.0); RED BLOOD COUNT 4.16 X10^6/uL (4.7-6.0); RED CELL DISTRIBUTION WIDTH 13.6 % (11.6-16.5); WHITE BLOOD COUNT 5.9 X10^3/uL (3.6-10.0)
[2021-09-09 18:35] LABS: ALANINE AMINOTRANSFERASE 39 Units/L (12-78); ALBUMIN 2.3 g/dL (3.4-5.0); ALKALINE PHOSPHATASE 62 Units/L (46-116); ASPARTATE AMINO TRANSFERASE 24 Units/L (15-37); BLOOD UREA NITROGEN 17 mg/dL (7-18); CALCIUM 8.4 mg/dL (8.5-10.1); CARBON DIOXIDE 29.9 mmol/L (21-32); CHLORIDE 101 mmol/L (98-107); COR CA(FOR HYPOALB) 9.8 mg/dL (8.5-10.1); COR NA(FOR HYPERGLY) 138 mmol/L (136-145); CREATININE 0.94 mg/dL (0.70-1.30); SODIUM 138 mmol/L (136-145); TOTAL PROTEIN 6.9 g/dL (6.4-8.2); eGFR NON BLACK RACES > 60 (>60)
[2021-09-09 21:06] LABS: APPEARANCE,URINE CLEAR (CLEAR); BILIRUBIN,URINE NEGATIVE (NEGATIVE); BLOOD/HEMOGLOBIN,URINE NEGATIVE (NEGATIVE); COLOR,URINE YELLOW (YELLOW); GLUCOSE, URINE NEGATIVE (NEGATIVE); KETONES,URINE 1+ (NEGATIVE); LEUKOCYTE ESTERASE ,URINE NEGATIVE (NEGATIVE); NITRITES,URINE NEGATIVE (NEGATIVE); PROTEIN,URINE 2+ (NEGATIVE); UROBILINOGEN,URINE NORMAL (NORMAL)
[2021-09-09 21:07] LABS: BACTERIA,URINE NEGATIVE /HPF (NEGATIVE); RBC,URINE 0-2 /HPF (0-3); SQUAMOUS EPITHELIAL CELL,UR RARE /HPF (NEGATIVE)
[2021-09-09] MEDS: SNACK - Diabetic Appropriate PO SCH (21:20)
[2021-09-09] MEDS: FLOMAX PO SCH (21:20)
[2021-09-09] MEDS: ZOSYN VIAL 3.375 GRAMS 3.375 G in NS 100 ML IV + SPIKE MINIBAG* 100 ML IV SCH (21:21)
[2021-09-10] MEDS: ZOSYN VIAL 3.375 GRAMS 3.375 G in NS 100 ML IV + SPIKE MINIBAG* 100 ML IV SCH ×3 (05:04→22:08)
--- NOTE | 2021-09-10 06:07 | RAD ---
HISTORYSOB, HYPOXIASTUDYCHEST, PA/LAT [id number]/05/2022.TECHNIQUEAP view of the chestFINDINGSThe cardiac silhouette is stably enlarged. Mediastinal contours appear stable. There are diffuse bilateral airspace and interstitial opacities worse than prior study. Cannot exclude small pleural effusions. No pneumothorax. Soft tissue attenuation limits evaluation.IMPRESSIONWorsening of now diffuse bilateral airspace and interstitial opacities may represent pulmonary edema or pneumonia. Cannot exclude small pleural effusions.Electronically signed by: Josef Foster (Sep 10, 2021 06:06:25)
[2021-09-10 06:25] LABS: BASOPHILS % (AUTO) 0.6 % (0.2-1.0); EOSINOPHILS # (AUTO) 0.7 x10^3/uL (0.0-0.2); EOSINOPHILS % (AUTO) 14.3 % (0.9-2.9); HEMATOCRIT 35.1 % (42.0-54.0); HEMOGLOBIN 12.1 g/dL (13.5-18.0); LYMPHOCYTES # (AUTO) 0.7 X10^3/uL (1.3-2.9); LYMPHOCYTES % (AUTO) 13.6 % (21.0-51.0); MEAN CORPUSCULAR HEMOGLOBIN 31.3 pg (27.0-34.0); MEAN CORPUSCULAR HGB CONC 34.3 g/dL (33.0-35.0); MEAN CORPUSCULAR VOLUME 91.1 fL (80.0-100.0); MEAN PLATELET VOLUME 8.7 fL (7.4-11.0); MONOCYTES # (AUTO) 0.5 x10^3/uL (0.3-0.8); MONOCYTES % (AUTO) 10.3 % (0.0-13.0); NEUTROPHILS # (AUTO) 2.9 x10^3/uL (2.2-4.8); NEUTROPHILS % (AUTO) 61.2 % (42.0-75.0); RED BLOOD COUNT 3.85 X10^6/uL (4.7-6.0); RED CELL DISTRIBUTION WIDTH 13.8 % (11.6-16.5); WHITE BLOOD COUNT 4.8 X10^3/uL (3.6-10.0)
[2021-09-10 06:34] LABS: ALANINE AMINOTRANSFERASE 33 Units/L (12-78); ALKALINE PHOSPHATASE 55 Units/L (46-116); ASPARTATE AMINO TRANSFERASE 21 Units/L (15-37); BLOOD UREA NITROGEN 16 mg/dL (7-18); CARBON DIOXIDE 30.3 mmol/L (21-32); CHLORIDE 103 mmol/L (98-107); COR CA(FOR HYPOALB) 9.6 mg/dL (8.5-10.1); COR NA(FOR HYPERGLY) 140 mmol/L (136-145); CREATININE 1.05 mg/dL (0.70-1.30); SODIUM 139 mmol/L (136-145); eGFR NON BLACK RACES > 60 (>60)
[2021-09-10] MEDS ORDERED: LASIX IVP ONE (08:34)
[2021-09-10] MEDS ORDERED: ZEBETA TAB 5 MG PO SCH (09:00)
[2021-09-10] MEDS ORDERED: ALBUMIN HUMAN 25%- 100 ML 100 ML IV SCH (09:00)
[2021-09-10] MEDS: PROTONIX TAB 40 MG PO SCH (09:30)
[2021-09-10] MEDS: LOVENOX INJ 40 MG SYR SC SCH (09:31)
[2021-09-10] MEDS: COZAAR PO SCH (09:38)
[2021-09-10] MEDS: ZEBETA TAB 5 MG PO SCH (09:39)
[2021-09-10] MEDS: VANCOMYCIN IV *PREMIX 1.5 G/300 ML BAG 1.5 G/300 ML PIGGYBACK IV SCH ×2 (10:59→20:41)
[2021-09-10] MEDS: XOPENEX 1.25 MG/3 ML NEBULE NEB SCH ×3 (12:39→23:25)
[2021-09-10] MEDS: SNACK - Diabetic Appropriate PO SCH (20:41)
[2021-09-10] MEDS: FLOMAX PO SCH (20:41)
[2021-09-10] MEDS: LR 1,000 ML IV 1,000 ML IV SCH (22:08)
[2021-09-11 01:28] LABS: CKMB % 2.6 % (<4); CREATINE KINASE 38 Units/L (39-308); CREATINE KINASE MB < 1.0 ng/mL (0-4.0)
[2021-09-11] MEDS: XOPENEX 1.25 MG/3 ML NEBULE NEB SCH ×3 (04:00→16:36)
[2021-09-11] MEDS: ZOSYN VIAL 3.375 GRAMS 3.375 G in NS 100 ML IV + SPIKE MINIBAG* 100 ML IV SCH ×3 (05:21→23:33)
[2021-09-11 09:29] LABS: BASOPHILS % (AUTO) 1.1 % (0.2-1.0); EOSINOPHILS # (AUTO) 0.4 x10^3/uL (0.0-0.2); EOSINOPHILS % (AUTO) 9.1 % (0.9-2.9); HEMATOCRIT 34.2 % (42.0-54.0); HEMOGLOBIN 11.8 g/dL (13.5-18.0); LYMPHOCYTES # (AUTO) 0.5 X10^3/uL (1.3-2.9); LYMPHOCYTES % (AUTO) 11.4 % (21.0-51.0); MEAN CORPUSCULAR HEMOGLOBIN 31.2 pg (27.0-34.0); MEAN CORPUSCULAR HGB CONC 34.6 g/dL (33.0-35.0); MEAN CORPUSCULAR VOLUME 90.2 fL (80.0-100.0); MEAN PLATELET VOLUME 8.5 fL (7.4-11.0); MONOCYTES # (AUTO) 0.4 x10^3/uL (0.3-0.8); MONOCYTES % (AUTO) 9.3 % (0.0-13.0); NEUTROPHILS # (AUTO) 3.3 x10^3/uL (2.2-4.8); NEUTROPHILS % (AUTO) 69.1 % (42.0-75.0); RED BLOOD COUNT 3.79 X10^6/uL (4.7-6.0); RED CELL DISTRIBUTION WIDTH 13.6 % (11.6-16.5); WHITE BLOOD COUNT 4.7 X10^3/uL (3.6-10.0)
[2021-09-11 09:39] LABS: BLOOD UREA NITROGEN 13 mg/dL (7-18); CALCIUM 8.4 mg/dL (8.5-10.1); CARBON DIOXIDE 29.5 mmol/L (21-32); CHLORIDE 101 mmol/L (98-107); COR NA(FOR HYPERGLY) 138 mmol/L (136-145); CREATININE 1.04 mg/dL (0.70-1.30); SODIUM 137 mmol/L (136-145); eGFR NON BLACK RACES > 60 (>60)
[2021-09-11] MEDS ORDERED: PREDNISONE TAB 10 MG PO SCH (10:00)
--- NOTE | 2021-09-11 10:12 | CT ---
HISTORY:Hypoxia, fever, shortness of breathStudy: CT chest without contrastComparison:Radiograph 09/10/2021Technique: Multiple axial images of the chest were obtained from the thoracic inlet to the upper abdomen without IV contrast. Dose reduction techniques including Automated Exposure Control (AEC) and adjustment of mA and kV were utilized.Findings:Please note evaluation is limited without IV contrast. There is cardiomegaly with prominent epicardial fat. There is severe bilateral multi pneumonia with scattered ground-glass infiltrates and interstitial thickening. Atypical etiologies such as COVID are possible. There is mild reactive mediastinal lymphadenopathy. No significant pleural effusions. No pneumothorax. Airways are patent.There is ACDF hardware in place. Incidental note of right nephrolithiasis.IMPRESSION:Severe bilateral multifocal pneumonia. No pleural effusions.Mild reactive mediastinal lymphadenopathy.Cardiomegaly.Electronically signed by: DENIS AGRAWAL (Sep 11, 2021 10:12:18)
[2021-09-11] MEDS: COZAAR PO SCH (10:17)
[2021-09-11] MEDS: VANCOMYCIN IV *PREMIX 1.5 G/300 ML BAG 1.5 G/300 ML PIGGYBACK IV SCH ×2 (10:18→21:58)
[2021-09-11] MEDS: LOVENOX INJ 40 MG SYR SC SCH (10:18)
[2021-09-11] MEDS: PROTONIX TAB 40 MG PO SCH (10:18)
[2021-09-11] MEDS: ZEBETA TAB 5 MG PO SCH (10:18)
[2021-09-11] MEDS ORDERED: SOLU-Medrol 125 MG VIAL IVP ONE (18:00)
[2021-09-11] MEDS: LR 1,000 ML IV 1,000 ML IV SCH (18:17)
[2021-09-11] MEDS ORDERED: PHARMACY COMMENT IV NR (20:30)
[2021-09-11] MEDS: FLOMAX PO SCH (21:17)
[2021-09-11] MEDS: SNACK - Diabetic Appropriate PO SCH (21:17)
[2021-09-11] MEDS: NovoLIN R (or HumuLIN R) SUBCUT PRN (21:18)
[2021-09-11 21:46] LABS: CREATININE 0.89 mg/dL (0.70-1.30); VANCOMYCIN,TROUGH 14.2 ug/mL (15-20)
[2021-09-12] MEDS: XOPENEX 1.25 MG/3 ML NEBULE NEB SCH ×4 (05:00→16:47)
[2021-09-12] MEDS: ZOSYN VIAL 3.375 GRAMS 3.375 G in NS 100 ML IV + SPIKE MINIBAG* 100 ML IV SCH ×3 (05:33→23:35)
[2021-09-12 05:34] LABS: BASOPHILS % (AUTO) 0.3 % (0.2-1.0); EOSINOPHILS % (AUTO) 0.2 % (0.9-2.9); HEMOGLOBIN 11.4 g/dL (13.5-18.0); LYMPHOCYTES # (AUTO) 0.3 X10^3/uL (1.3-2.9); LYMPHOCYTES % (AUTO) 6.8 % (21.0-51.0); MEAN CORPUSCULAR HEMOGLOBIN 31.1 pg (27.0-34.0); MEAN CORPUSCULAR HGB CONC 34.5 g/dL (33.0-35.0); MEAN CORPUSCULAR VOLUME 90.2 fL (80.0-100.0); MEAN PLATELET VOLUME 9.2 fL (7.4-11.0); MONOCYTES # (AUTO) 0.1 x10^3/uL (0.3-0.8); MONOCYTES % (AUTO) 2.4 % (0.0-13.0); NEUTROPHILS # (AUTO) 3.7 x10^3/uL (2.2-4.8); NEUTROPHILS % (AUTO) 90.3 % (42.0-75.0); RED BLOOD COUNT 3.66 X10^6/uL (4.7-6.0); RED CELL DISTRIBUTION WIDTH 13.5 % (11.6-16.5); WHITE BLOOD COUNT 4.1 X10^3/uL (3.6-10.0)
[2021-09-12] MEDS: NovoLIN R (or HumuLIN R) SUBCUT PRN ×3 (05:34→21:25)
[2021-09-12 05:42] LABS: ALANINE AMINOTRANSFERASE 36 Units/L (12-78); ALBUMIN 2.1 g/dL (3.4-5.0); ALKALINE PHOSPHATASE 53 Units/L (46-116); ASPARTATE AMINO TRANSFERASE 25 Units/L (15-37); BLOOD UREA NITROGEN 15 mg/dL (7-18); CALCIUM 8.8 mg/dL (8.5-10.1); CARBON DIOXIDE 28.8 mmol/L (21-32); CHLORIDE 99 mmol/L (98-107); COR CA(FOR HYPOALB) 10.3 mg/dL (8.5-10.1); COR NA(FOR HYPERGLY) 131 mmol/L (136-145); CREATININE 0.86 mg/dL (0.70-1.30); SODIUM 128 mmol/L (136-145); TOTAL PROTEIN 6.6 g/dL (6.4-8.2); eGFR NON BLACK RACES > 60 (>60)
[2021-09-12 06:23] LABS: PLATELET MORPHOLOGY COMMENT NORMAL (NORMAL)
[2021-09-12] MEDS: COZAAR PO SCH (08:39)
[2021-09-12] MEDS: PROTONIX TAB 40 MG PO SCH (08:40)
[2021-09-12] MEDS: VANCOMYCIN IV *PREMIX 1.5 G/300 ML BAG 1.5 G/300 ML PIGGYBACK IV SCH ×2 (08:41→21:23)
[2021-09-12] MEDS: ZEBETA TAB 5 MG PO SCH (08:42)
[2021-09-12] MEDS: LOVENOX INJ 40 MG SYR SC SCH (08:42)
[2021-09-12] MEDS ORDERED: DECADRON TAB PO SCH (09:00)
--- NOTE | 2021-09-12 11:02 | CT ---
HISTORYHYPOXIA, SOB, FEVERSTUDYSINUS W/O CONCOMPARISONTECHNIQUEMultiple axial images of the facial structures were obtained from the mandible to superior portions of the orbits. Dose reduction techniques including Automated Exposure Control (AEC) and adjustment of mA and kV were utilized.FINDINGSThe frontal sinuses and sphenoid sinuses are clear. There is some scant mucosal thickening in ethmoid air cells. There is a small mucous retention cyst in the maxillary sinuses bilaterally. The hiatus semilunaris and frontoethmoid recesses are patent bilaterally. Mastoid air cell and middle ear cavities are clear bilaterally. No pathologic adenopathy. The orbits are unremarkable.IMPRESSIONMinimal chronic sinus disease in the ethmoids and maxillary sinuses. Nothing acute.Electronically signed by: Thanh Bassett (Sep 10, 2021 11:24:13)
[2021-09-12] MEDS: SOLU-Medrol 125 MG VIAL IVP SCH ×3 (11:05→21:20)
[2021-09-12] MEDS: LR 1,000 ML IV 1,000 ML IV SCH (14:30)
[2021-09-12] MEDS: SNACK - Diabetic Appropriate PO SCH (21:17)
[2021-09-12] MEDS: FLOMAX PO SCH (21:19)
[2021-09-13] MEDS: SOLU-Medrol 125 MG VIAL IVP SCH ×4 (03:20→21:38)
[2021-09-13] MEDS: ZOSYN VIAL 3.375 GRAMS 3.375 G in NS 100 ML IV + SPIKE MINIBAG* 100 ML IV SCH (05:48)
[2021-09-13] MEDS: LR 1,000 ML IV 1,000 ML IV SCH ×3 (05:48→17:19)
[2021-09-13] MEDS: NovoLIN R (or HumuLIN R) SUBCUT PRN ×3 (06:19→17:19)
[2021-09-13] MEDS: XOPENEX 1.25 MG/3 ML NEBULE NEB SCH ×4 (06:20→18:07)
[2021-09-13 06:57] LABS: BASOPHILS % (AUTO) 0.2 % (0.2-1.0); EOSINOPHILS % (AUTO) 0.1 % (0.9-2.9); HEMATOCRIT 33.8 % (42.0-54.0); HEMOGLOBIN 11.8 g/dL (13.5-18.0); LYMPHOCYTES # (AUTO) 0.5 X10^3/uL (1.3-2.9); LYMPHOCYTES % (AUTO) 4.4 % (21.0-51.0); MEAN CORPUSCULAR HEMOGLOBIN 31.3 pg (27.0-34.0); MEAN CORPUSCULAR VOLUME 89.6 fL (80.0-100.0); MEAN PLATELET VOLUME 9.6 fL (7.4-11.0); MONOCYTES # (AUTO) 0.4 x10^3/uL (0.3-0.8); MONOCYTES % (AUTO) 3.2 % (0.0-13.0); NEUTROPHILS # (AUTO) 10.4 x10^3/uL (2.2-4.8); NEUTROPHILS % (AUTO) 92.1 % (42.0-75.0); RED BLOOD COUNT 3.78 X10^6/uL (4.7-6.0); RED CELL DISTRIBUTION WIDTH 13.6 % (11.6-16.5); WHITE BLOOD COUNT 11.3 X10^3/uL (3.6-10.0)
[2021-09-13 07:15] LABS: ALANINE AMINOTRANSFERASE 38 Units/L (12-78); ALBUMIN 2.3 g/dL (3.4-5.0); ALKALINE PHOSPHATASE 58 Units/L (46-116); ASPARTATE AMINO TRANSFERASE 23 Units/L (15-37); BLOOD UREA NITROGEN 23 mg/dL (7-18); CALCIUM 8.9 mg/dL (8.5-10.1); CARBON DIOXIDE 28.3 mmol/L (21-32); CHLORIDE 103 mmol/L (98-107); COR CA(FOR HYPOALB) 10.3 mg/dL (8.5-10.1); COR NA(FOR HYPERGLY) 142 mmol/L (136-145); CREATININE 1.08 mg/dL (0.70-1.30); SODIUM 140 mmol/L (136-145); TOTAL PROTEIN 6.8 g/dL (6.4-8.2); eGFR NON BLACK RACES > 60 (>60)
[2021-09-13 08:21] LABS: PLATELET MORPHOLOGY COMMENT NORMAL (NORMAL)
[2021-09-13] MEDS: ZEBETA TAB 5 MG PO SCH (08:42)
[2021-09-13] MEDS: COZAAR PO SCH (08:43)
[2021-09-13] MEDS: PROTONIX TAB 40 MG PO SCH (08:43)
[2021-09-13] MEDS: LOVENOX INJ 40 MG SYR SC ONE ×2 (08:44→09:37)
[2021-09-13] MEDS: VANCOMYCIN IV ONE ×2 (08:45→09:38)
[2021-09-13] MEDS: PIGGYBACK IV ONE ×2 (08:45→09:38)
[2021-09-13] MEDS: ELIQUIS PO SCH ×2 (09:59→21:36)
[2021-09-13] MEDS: AVELOX TAB 400 MG PO SCH ×2 (11:49→12:11)
[2021-09-13] MEDS: SNACK - Diabetic Appropriate PO SCH (21:32)
[2021-09-13] MEDS: FLOMAX PO SCH (21:35)
[2021-09-14] MEDS: XOPENEX 1.25 MG/3 ML NEBULE NEB SCH ×4 (00:09→17:56)
[2021-09-14] MEDS: LR 1,000 ML IV 1,000 ML IV SCH ×3 (03:01→20:15)
[2021-09-14] MEDS: SOLU-Medrol 125 MG VIAL IVP SCH ×4 (03:01→20:16)
[2021-09-14] MEDS: NovoLIN R (or HumuLIN R) SUBCUT PRN ×4 (05:54→20:43)
[2021-09-14 07:00] LABS: BASOPHILS % (AUTO) 0.2 % (0.2-1.0); HEMATOCRIT 34.2 % (42.0-54.0); HEMOGLOBIN 11.8 g/dL (13.5-18.0); LYMPHOCYTES # (AUTO) 0.6 X10^3/uL (1.3-2.9); LYMPHOCYTES % (AUTO) 5.8 % (21.0-51.0); MEAN CORPUSCULAR HGB CONC 34.3 g/dL (33.0-35.0); MEAN CORPUSCULAR VOLUME 90.2 fL (80.0-100.0); MEAN PLATELET VOLUME 9.6 fL (7.4-11.0); MONOCYTES # (AUTO) 0.4 x10^3/uL (0.3-0.8); MONOCYTES % (AUTO) 3.9 % (0.0-13.0); NEUTROPHILS # (AUTO) 9.6 x10^3/uL (2.2-4.8); NEUTROPHILS % (AUTO) 90.1 % (42.0-75.0); RED CELL DISTRIBUTION WIDTH 13.7 % (11.6-16.5); WHITE BLOOD COUNT 10.6 X10^3/uL (3.6-10.0)
[2021-09-14 07:01] LABS: ALANINE AMINOTRANSFERASE 36 Units/L (12-78); ALBUMIN 2.3 g/dL (3.4-5.0); ALKALINE PHOSPHATASE 59 Units/L (46-116); ASPARTATE AMINO TRANSFERASE 19 Units/L (15-37); BLOOD UREA NITROGEN 32 mg/dL (7-18); CALCIUM 8.7 mg/dL (8.5-10.1); CARBON DIOXIDE 27.1 mmol/L (21-32); CHLORIDE 105 mmol/L (98-107); COR CA(FOR HYPOALB) 10.1 mg/dL (8.5-10.1); COR NA(FOR HYPERGLY) 145 mmol/L (136-145); CREATININE 1.17 mg/dL (0.70-1.30); SODIUM 141 mmol/L (136-145); TOTAL PROTEIN 6.4 g/dL (6.4-8.2); eGFR NON BLACK RACES > 60 (>60)
[2021-09-14 08:08] LABS: PLATELET MORPHOLOGY COMMENT NORMAL (NORMAL)
[2021-09-14] MEDS: COZAAR PO SCH (08:27)
[2021-09-14] MEDS: PROTONIX TAB 40 MG PO SCH (08:27)
[2021-09-14] MEDS: ELIQUIS PO SCH ×2 (08:27→20:15)
[2021-09-14] MEDS: ZEBETA TAB 5 MG PO SCH (08:27)
[2021-09-14] MEDS: AVELOX TAB 400 MG PO SCH (08:27)
[2021-09-14] MEDS: DIFLUCAN 200 MG IV PREMIX* 200 MG/100 ML BAG IV SCH (10:53)
[2021-09-14] MEDS: FLOMAX PO SCH (20:16)
[2021-09-15] MEDS: XOPENEX 1.25 MG/3 ML NEBULE NEB SCH ×4 (00:35→18:50)
[2021-09-15] MEDS: SOLU-Medrol 125 MG VIAL IVP SCH (03:25)
[2021-09-15] MEDS: LR 1,000 ML IV 1,000 ML IV SCH ×4 (03:37→20:01)
[2021-09-15 06:13] LABS: BASOPHILS % (AUTO) 0.2 % (0.2-1.0); EOSINOPHILS % (AUTO) 0.1 % (0.9-2.9); HEMATOCRIT 32.5 % (42.0-54.0); HEMOGLOBIN 11.3 g/dL (13.5-18.0); LYMPHOCYTES # (AUTO) 0.6 X10^3/uL (1.3-2.9); LYMPHOCYTES % (AUTO) 5.1 % (21.0-51.0); MEAN CORPUSCULAR HEMOGLOBIN 31.3 pg (27.0-34.0); MEAN CORPUSCULAR HGB CONC 34.8 g/dL (33.0-35.0); MEAN CORPUSCULAR VOLUME 89.9 fL (80.0-100.0); MEAN PLATELET VOLUME 9.5 fL (7.4-11.0); MONOCYTES # (AUTO) 0.5 x10^3/uL (0.3-0.8); MONOCYTES % (AUTO) 5.1 % (0.0-13.0); NEUTROPHILS # (AUTO) 9.7 x10^3/uL (2.2-4.8); NEUTROPHILS % (AUTO) 89.5 % (42.0-75.0); RED BLOOD COUNT 3.62 X10^6/uL (4.7-6.0); RED CELL DISTRIBUTION WIDTH 13.8 % (11.6-16.5); WHITE BLOOD COUNT 10.8 X10^3/uL (3.6-10.0)
[2021-09-15 06:33] LABS: ALANINE AMINOTRANSFERASE 37 Units/L (12-78); ALBUMIN 2.2 g/dL (3.4-5.0); ALKALINE PHOSPHATASE 56 Units/L (46-116); ASPARTATE AMINO TRANSFERASE 19 Units/L (15-37); BLOOD UREA NITROGEN 28 mg/dL (7-18); CALCIUM 8.5 mg/dL (8.5-10.1); CARBON DIOXIDE 28.6 mmol/L (21-32); CHLORIDE 107 mmol/L (98-107); COR CA(FOR HYPOALB) 9.9 mg/dL (8.5-10.1); COR NA(FOR HYPERGLY) 143 mmol/L (136-145); CREATININE 0.99 mg/dL (0.70-1.30); SODIUM 141 mmol/L (136-145); TOTAL PROTEIN 5.9 g/dL (6.4-8.2); eGFR NON BLACK RACES > 60 (>60)
[2021-09-15 07:20] LABS: BAND NEUTROPHILS % 2 % (0-10); METAMYELOCYTES % 1; MYELOCYTES % 1; PLATELET MORPHOLOGY COMMENT NORMAL (NORMAL)
[2021-09-15] MEDS ORDERED: SOLU-Medrol 40 MG VIAL ONE (08:15)
[2021-09-15] MEDS: ELIQUIS PO SCH ×2 (08:39→20:36)
[2021-09-15] MEDS: COZAAR PO SCH (08:39)
[2021-09-15] MEDS: SOLU-Medrol 40 MG VIAL IVP SCH ×3 (08:39→20:36)
[2021-09-15] MEDS: PROTONIX TAB 40 MG PO SCH (08:39)
[2021-09-15] MEDS: AVELOX TAB 400 MG PO SCH (08:39)
[2021-09-15] MEDS: ZEBETA TAB 5 MG PO SCH (08:40)
[2021-09-15] MEDS: DIFLUCAN 200 MG IV PREMIX* 200 MG/100 ML BAG IV SCH (08:40)
[2021-09-15] MEDS: FLONASE NASAL SPRAY ENOSTRIL SCH (09:52)
[2021-09-15] MEDS: NovoLIN R (or HumuLIN R) SUBCUT PRN ×2 (11:54→16:10)
[2021-09-15] MEDS ORDERED: XANAX PO PRN (17:49)
[2021-09-15] MEDS: FLOMAX PO SCH (20:36)
[2021-09-16] MEDS: XOPENEX 1.25 MG/3 ML NEBULE NEB SCH ×3 (00:40→17:00)
[2021-09-16] MEDS: SOLU-Medrol 40 MG VIAL IVP SCH ×2 (03:25→08:05)
[2021-09-16] MEDS: LR 1,000 ML IV 1,000 ML IV SCH ×4 (04:06→21:13)
[2021-09-16] MEDS: NovoLIN R (or HumuLIN R) SUBCUT PRN ×4 (05:36→20:45)
[2021-09-16 06:06] LABS: BASOPHILS % (AUTO) 0.3 % (0.2-1.0); HEMATOCRIT 33.9 % (42.0-54.0); HEMOGLOBIN 11.5 g/dL (13.5-18.0); LYMPHOCYTES # (AUTO) 0.5 X10^3/uL (1.3-2.9); LYMPHOCYTES % (AUTO) 4.6 % (21.0-51.0); MEAN CORPUSCULAR HEMOGLOBIN 30.7 pg (27.0-34.0); MEAN CORPUSCULAR VOLUME 90.3 fL (80.0-100.0); MEAN PLATELET VOLUME 9.4 fL (7.4-11.0); MONOCYTES # (AUTO) 0.5 x10^3/uL (0.3-0.8); NEUTROPHILS # (AUTO) 10.2 x10^3/uL (2.2-4.8); NEUTROPHILS % (AUTO) 91.1 % (42.0-75.0); RED BLOOD COUNT 3.76 X10^6/uL (4.7-6.0); RED CELL DISTRIBUTION WIDTH 13.8 % (11.6-16.5); WHITE BLOOD COUNT 11.2 X10^3/uL (3.6-10.0)
[2021-09-16 06:19] LABS: ALANINE AMINOTRANSFERASE 40 Units/L (12-78); ALBUMIN 2.2 g/dL (3.4-5.0); ALKALINE PHOSPHATASE 59 Units/L (46-116); ASPARTATE AMINO TRANSFERASE 21 Units/L (15-37); BLOOD UREA NITROGEN 29 mg/dL (7-18); CALCIUM 8.4 mg/dL (8.5-10.1); CARBON DIOXIDE 28.5 mmol/L (21-32); CHLORIDE 107 mmol/L (98-107); COR CA(FOR HYPOALB) 9.8 mg/dL (8.5-10.1); COR NA(FOR HYPERGLY) 145 mmol/L (136-145); CREATININE 1.03 mg/dL (0.70-1.30); SODIUM 141 mmol/L (136-145); TOTAL PROTEIN 5.8 g/dL (6.4-8.2); eGFR NON BLACK RACES > 60 (>60)
[2021-09-16 07:19] LABS: METAMYELOCYTES % 4; PLATELET MORPHOLOGY COMMENT NORMAL (NORMAL)
[2021-09-16] MEDS: AVELOX TAB 400 MG PO SCH (08:04)
[2021-09-16] MEDS: FLONASE NASAL SPRAY ENOSTRIL SCH (08:04)
[2021-09-16] MEDS: DIFLUCAN 200 MG IV PREMIX* 200 MG/100 ML BAG IV SCH (08:05)
[2021-09-16] MEDS: COZAAR PO SCH (08:05)
[2021-09-16] MEDS: PROTONIX TAB 40 MG PO SCH (08:05)
[2021-09-16] MEDS: ZEBETA TAB 5 MG PO SCH (08:05)
[2021-09-16] MEDS: ELIQUIS PO SCH ×2 (08:05→20:45)
[2021-09-16] MEDS: NORVASC TAB 10 MG PO SCH (09:43)
[2021-09-16] MEDS ORDERED: DECADRON TAB PO SCH ×2 (10:00→14:00)
[2021-09-16] MEDS ORDERED: APRESOLINE INJ 20 MG VIAL IVP ONE (11:54)
[2021-09-16 16:20] VITALS: BMI 28.1
[2021-09-16] MEDS: FLOMAX PO SCH (20:45)
[2021-09-17] MEDS: XOPENEX 1.25 MG/3 ML NEBULE NEB SCH ×4 (00:15→17:07)
[2021-09-17] MEDS: NovoLIN R (or HumuLIN R) SUBCUT PRN ×2 (05:48→11:42)
[2021-09-17 06:17] LABS: BASOPHILS % (AUTO) 0.2 % (0.2-1.0); HEMATOCRIT 34.7 % (42.0-54.0); HEMOGLOBIN 11.8 g/dL (13.5-18.0); LYMPHOCYTES # (AUTO) 0.5 X10^3/uL (1.3-2.9); LYMPHOCYTES % (AUTO) 4.7 % (21.0-51.0); MEAN CORPUSCULAR HEMOGLOBIN 30.8 pg (27.0-34.0); MEAN CORPUSCULAR VOLUME 90.8 fL (80.0-100.0); MEAN PLATELET VOLUME 9.1 fL (7.4-11.0); MONOCYTES # (AUTO) 0.5 x10^3/uL (0.3-0.8); MONOCYTES % (AUTO) 5.3 % (0.0-13.0); NEUTROPHILS # (AUTO) 8.9 x10^3/uL (2.2-4.8); NEUTROPHILS % (AUTO) 89.8 % (42.0-75.0); RED BLOOD COUNT 3.82 X10^6/uL (4.7-6.0); RED CELL DISTRIBUTION WIDTH 13.8 % (11.6-16.5); WHITE BLOOD COUNT 9.9 X10^3/uL (3.6-10.0)
[2021-09-17 06:36] LABS: ALANINE AMINOTRANSFERASE 46 Units/L (12-78); ALBUMIN 2.3 g/dL (3.4-5.0); ALKALINE PHOSPHATASE 57 Units/L (46-116); ASPARTATE AMINO TRANSFERASE 20 Units/L (15-37); BLOOD UREA NITROGEN 24 mg/dL (7-18); CARBON DIOXIDE 31.8 mmol/L (21-32); CHLORIDE 110 mmol/L (98-107); COR CA(FOR HYPOALB) 9.4 mg/dL (8.5-10.1); COR NA(FOR HYPERGLY) 151 mmol/L (136-145); CREATININE 0.92 mg/dL (0.70-1.30); SODIUM 148 mmol/L (136-145); TOTAL PROTEIN 5.5 g/dL (6.4-8.2); eGFR NON BLACK RACES > 60 (>60)
[2021-09-17 07:34] LABS: BAND NEUTROPHILS % 1 % (0-10); METAMYELOCYTES % 2; PLATELET MORPHOLOGY COMMENT NORMAL (NORMAL)
[2021-09-17] MEDS: AVELOX TAB 400 MG PO SCH (09:06)
[2021-09-17] MEDS: DIFLUCAN 200 MG IV PREMIX* 200 MG/100 ML BAG IV SCH (09:06)
[2021-09-17] MEDS: COZAAR PO SCH (09:06)
[2021-09-17] MEDS: PROTONIX TAB 40 MG PO SCH (09:07)
[2021-09-17] MEDS: ELIQUIS PO SCH ×2 (09:07→21:00)
[2021-09-17] MEDS: FLONASE NASAL SPRAY ENOSTRIL SCH (09:07)
[2021-09-17] MEDS: NORVASC TAB 10 MG PO SCH (09:07)
[2021-09-17] MEDS: ZEBETA TAB 5 MG PO SCH (09:08)
[2021-09-17] MEDS: LR 1,000 ML IV 1,000 ML IV SCH (11:53)
[2021-09-17] MEDS: FLOMAX PO SCH (21:00)
[2021-09-18] MEDS: XOPENEX 1.25 MG/3 ML NEBULE NEB SCH ×4 (00:35→18:15)
[2021-09-18] MEDS: LR 1,000 ML IV 1,000 ML IV SCH ×2 (05:53→13:04)
[2021-09-18 06:44] LABS: ALANINE AMINOTRANSFERASE 55 Units/L (12-78); ALBUMIN 2.2 g/dL (3.4-5.0); ALKALINE PHOSPHATASE 53 Units/L (46-116); ASPARTATE AMINO TRANSFERASE 26 Units/L (15-37); BLOOD UREA NITROGEN 22 mg/dL (7-18); CALCIUM 7.9 mg/dL (8.5-10.1); CARBON DIOXIDE 33.2 mmol/L (21-32); CHLORIDE 109 mmol/L (98-107); COR CA(FOR HYPOALB) 9.3 mg/dL (8.5-10.1); COR NA(FOR HYPERGLY) 147 mmol/L (136-145); CREATININE 0.84 mg/dL (0.70-1.30); SODIUM 146 mmol/L (136-145); TOTAL PROTEIN 5.1 g/dL (6.4-8.2); eGFR NON BLACK RACES > 60 (>60)
[2021-09-18 06:53] LABS: BASOPHILS % (AUTO) 0.2 % (0.2-1.0); EOSINOPHILS % (AUTO) 0.5 % (0.9-2.9); HEMATOCRIT 33.9 % (42.0-54.0); HEMOGLOBIN 11.6 g/dL (13.5-18.0); LYMPHOCYTES # (AUTO) 0.9 X10^3/uL (1.3-2.9); LYMPHOCYTES % (AUTO) 9.5 % (21.0-51.0); MEAN CORPUSCULAR HEMOGLOBIN 31.1 pg (27.0-34.0); MEAN CORPUSCULAR HGB CONC 34.2 g/dL (33.0-35.0); MEAN PLATELET VOLUME 9.4 fL (7.4-11.0); MONOCYTES # (AUTO) 0.7 x10^3/uL (0.3-0.8); MONOCYTES % (AUTO) 7.1 % (0.0-13.0); NEUTROPHILS % (AUTO) 82.7 % (42.0-75.0); RED BLOOD COUNT 3.72 X10^6/uL (4.7-6.0); RED CELL DISTRIBUTION WIDTH 13.8 % (11.6-16.5); WHITE BLOOD COUNT 9.7 X10^3/uL (3.6-10.0)
[2021-09-18 07:49] LABS: BAND NEUTROPHILS % 2 % (0-10); METAMYELOCYTES % 2; PLATELET MORPHOLOGY COMMENT NORMAL (NORMAL)
[2021-09-18] MEDS: ZEBETA TAB 5 MG PO SCH (08:40)
[2021-09-18] MEDS: PROTONIX TAB 40 MG PO SCH (08:40)
[2021-09-18] MEDS: ELIQUIS PO SCH ×2 (08:40→20:22)
[2021-09-18] MEDS: DIFLUCAN 200 MG IV PREMIX* 200 MG/100 ML BAG IV SCH (08:40)
[2021-09-18] MEDS: COZAAR PO SCH (08:40)
[2021-09-18] MEDS: NORVASC TAB 10 MG PO SCH (08:41)
[2021-09-18] MEDS ORDERED: DECADRON TAB PO SCH ×2 (09:00)
[2021-09-18] MEDS: FLONASE NASAL SPRAY ENOSTRIL SCH (10:31)
[2021-09-18] MEDS: AVELOX TAB 400 MG PO SCH (10:31)
[2021-09-18] MEDS: NovoLIN R (or HumuLIN R) SUBCUT PRN ×2 (16:37→20:22)
[2021-09-18] MEDS: FLOMAX PO SCH (20:22)
[2021-09-19] MEDS: XOPENEX 1.25 MG/3 ML NEBULE NEB SCH ×4 (00:15→18:01)
[2021-09-19 06:00] LABS: BASOPHILS % (AUTO) 0.1 % (0.2-1.0); EOSINOPHILS % (AUTO) 0.2 % (0.9-2.9); HEMATOCRIT 35.1 % (42.0-54.0); HEMOGLOBIN 12.1 g/dL (13.5-18.0); LYMPHOCYTES # (AUTO) 0.7 X10^3/uL (1.3-2.9); LYMPHOCYTES % (AUTO) 6.7 % (21.0-51.0); MEAN CORPUSCULAR HEMOGLOBIN 31.2 pg (27.0-34.0); MEAN CORPUSCULAR HGB CONC 34.5 g/dL (33.0-35.0); MEAN CORPUSCULAR VOLUME 90.6 fL (80.0-100.0); MEAN PLATELET VOLUME 9.5 fL (7.4-11.0); MONOCYTES # (AUTO) 0.5 x10^3/uL (0.3-0.8); MONOCYTES % (AUTO) 4.3 % (0.0-13.0); NEUTROPHILS # (AUTO) 9.5 x10^3/uL (2.2-4.8); NEUTROPHILS % (AUTO) 88.7 % (42.0-75.0); RED BLOOD COUNT 3.87 X10^6/uL (4.7-6.0); RED CELL DISTRIBUTION WIDTH 13.7 % (11.6-16.5); WHITE BLOOD COUNT 10.7 X10^3/uL (3.6-10.0)
[2021-09-19 06:26] LABS: ALANINE AMINOTRANSFERASE 50 Units/L (12-78); ALBUMIN 2.1 g/dL (3.4-5.0); ALKALINE PHOSPHATASE 55 Units/L (46-116); ASPARTATE AMINO TRANSFERASE 21 Units/L (15-37); BLOOD UREA NITROGEN 17 mg/dL (7-18); CALCIUM 7.9 mg/dL (8.5-10.1); CARBON DIOXIDE 32.2 mmol/L (21-32); CHLORIDE 105 mmol/L (98-107); COR CA(FOR HYPOALB) 9.4 mg/dL (8.5-10.1); COR NA(FOR HYPERGLY) 140 mmol/L (136-145); CREATININE 0.71 mg/dL (0.70-1.30); SODIUM 139 mmol/L (136-145); TOTAL PROTEIN 5.1 g/dL (6.4-8.2); eGFR NON BLACK RACES > 60 (>60)
[2021-09-19 07:05] LABS: METAMYELOCYTES % 6; MYELOCYTES % 1
[2021-09-19 07:06] LABS: BAND NEUTROPHILS % 10 % (0-10)
[2021-09-19 07:07] LABS: PLATELET MORPHOLOGY COMMENT NORMAL (NORMAL)
[2021-09-19] MEDS: DIFLUCAN 200 MG IV PREMIX* 200 MG/100 ML BAG IV SCH (09:39)
[2021-09-19] MEDS: AVELOX TAB 400 MG PO SCH (09:40)
[2021-09-19] MEDS: ZEBETA TAB 5 MG PO SCH (09:40)
[2021-09-19] MEDS: PROTONIX TAB 40 MG PO SCH (09:40)
[2021-09-19] MEDS: COZAAR PO SCH (09:41)
[2021-09-19] MEDS: ELIQUIS PO SCH ×2 (09:41→20:46)
[2021-09-19] MEDS: NORVASC TAB 10 MG PO SCH (09:41)
[2021-09-19] MEDS: FLONASE NASAL SPRAY ENOSTRIL SCH (09:41)
[2021-09-19] MEDS: DIFLUCAN PO SCH (10:14)
[2021-09-19] MEDS: LR 1,000 ML IV 1,000 ML IV SCH (11:48)
[2021-09-19] MEDS: NovoLIN R (or HumuLIN R) SUBCUT PRN (20:47)
[2021-09-19] MEDS: FLOMAX PO SCH (20:47)
[2021-09-20] MEDS: XOPENEX 1.25 MG/3 ML NEBULE NEB SCH ×2 (00:05→06:12)
[2021-09-20 06:31] LABS: BASOPHILS # (AUTO) 0.1 X10^3/uL (0.0-0.1); BASOPHILS % (AUTO) 0.8 % (0.2-1.0); EOSINOPHILS # (AUTO) 0.2 x10^3/uL (0.0-0.2); EOSINOPHILS % (AUTO) 1.7 % (0.9-2.9); HEMATOCRIT 35.6 % (42.0-54.0); HEMOGLOBIN 12.1 g/dL (13.5-18.0); LYMPHOCYTES # (AUTO) 0.6 X10^3/uL (1.3-2.9); LYMPHOCYTES % (AUTO) 4.6 % (21.0-51.0); MEAN CORPUSCULAR HEMOGLOBIN 30.8 pg (27.0-34.0); MEAN CORPUSCULAR HGB CONC 34.1 g/dL (33.0-35.0); MEAN CORPUSCULAR VOLUME 90.4 fL (80.0-100.0); MEAN PLATELET VOLUME 9.4 fL (7.4-11.0); MONOCYTES # (AUTO) 0.6 x10^3/uL (0.3-0.8); MONOCYTES % (AUTO) 4.2 % (0.0-13.0); NEUTROPHILS # (AUTO) 11.8 x10^3/uL (2.2-4.8); NEUTROPHILS % (AUTO) 88.7 % (42.0-75.0); RED BLOOD COUNT 3.94 X10^6/uL (4.7-6.0); RED CELL DISTRIBUTION WIDTH 13.5 % (11.6-16.5); WHITE BLOOD COUNT 13.2 X10^3/uL (3.6-10.0)
[2021-09-20 06:47] LABS: ALANINE AMINOTRANSFERASE 43 Units/L (12-78); ALBUMIN 2.1 g/dL (3.4-5.0); ALKALINE PHOSPHATASE 53 Units/L (46-116); ASPARTATE AMINO TRANSFERASE 16 Units/L (15-37); BLOOD UREA NITROGEN 21 mg/dL (7-18); CALCIUM 7.7 mg/dL (8.5-10.1); CARBON DIOXIDE 32.4 mmol/L (21-32); CHLORIDE 104 mmol/L (98-107); COR CA(FOR HYPOALB) 9.2 mg/dL (8.5-10.1); COR NA(FOR HYPERGLY) 138 mmol/L (136-145); CREATININE 0.73 mg/dL (0.70-1.30); SODIUM 137 mmol/L (136-145); eGFR NON BLACK RACES > 60 (>60)
[2021-09-20 07:16] LABS: PLATELET MORPHOLOGY COMMENT NORMAL (NORMAL)
[2021-09-20 08:56] VITALS: BP 135/70
[2021-09-20] MEDS ORDERED: DECADRON TAB PO SCH (09:00)
[2021-09-20] MEDS ORDERED: PREDNISONE TAB 10 MG PO SCH (10:00)
[2021-09-20] MEDS: DIFLUCAN PO SCH (10:34)
[2021-09-20] MEDS: NORVASC TAB 10 MG PO SCH (10:35)
[2021-09-20] MEDS: COZAAR PO SCH (10:35)
[2021-09-20] MEDS: PROTONIX TAB 40 MG PO SCH (10:36)
[2021-09-20] MEDS: AVELOX TAB 400 MG PO SCH (10:36)
[2021-09-20] MEDS: ZEBETA TAB 5 MG PO SCH (10:36)
[2021-09-20] MEDS: FLONASE NASAL SPRAY ENOSTRIL SCH (10:36)
[2021-09-20] MEDS: ELIQUIS PO SCH (10:36)
== END 2021-09-20 12:20 | disposition home or self-care (01) | DRG 195 ==
LOC: MED/SURG → OBSVTOIN 16:30
PROVIDERS: ADMIT Obstetrics & Gynecology Obstetrics; ATTEND Obstetrics & Gynecology Obstetrics